=== PATIENT | female | born 1960 ===

== ENCOUNTER 2017-07-13 22:00 | Emergency (ER) | payer OTHER ==
[2017-07-13 22:14] VITALS: O2SAT 98
[2017-07-13] MEDS ORDERED: Sodium Chloride 0.9% 500 ML IV STA (23:48)
--- NOTE | 2017-07-13 23:48 | C.PDOC ---
History Of Present Illness 57yo female, presents to ED with complaints of cough and associated upper back pain for the past week. She states the pain is worsened with cough and deep inspiration. She denies any associated fever, chills, chest pain, nausea, vomiting or diarrhea. She offers no other medical complaints. PMD: Denis Esteban HPI: Influenza Time Seen by Provider: 07/13/17 22:24 Chief Complaint: Cough, Cold, Congestion Chief Complaint (Provider): Cough, back pain History Per: Patient Exam Limitations: no limitations Have you had recent travel within the past 21 days to any of the following countries: [place], [place], [place] or [place]?: No Onset/Duration Of Symptoms: Days Symptoms include: denies: fever, chest pain Risk factors for flu complications: No: adult > 65 years Past Medical History Reviewed: Historical Data, Nursing Documentation, Vital Signs Vital Signs: Last Vital Signs Temp 98.2 F 07/13/17 22:10 Pulse 92 H 07/13/17 22:10 Resp 18 07/13/17 22:10 BP 149/92 H 07/13/17 22:10 Pulse Ox 98 07/13/17 22:10 - Medical History PMH: No Chronic Diseases Surgical History: No Surg Hx Family History: States: No Known Family Hx - Social History Hx Alcohol Use: No Hx Substance Use: No Review Of Systems Except As Marked, All Systems Reviewed And Found Negative. Constitutional: Negative for: Fever, Chills Cardiovascular: Negative for: Chest Pain Respiratory: Positive for: Cough. Negative for: Shortness of Breath Gastrointestinal: Negative for: Nausea, Vomiting, Diarrhea Physical Exam - Physical Exam Appears: Non-toxic, Other (uncomfortable) Skin: Normal Color, Warm, Dry Head: Atraumatic, Normacephalic Eye(s): bilateral: Normal Inspection Ear(s): Bilateral: Normal Nose: Normal Oral Mucosa: Moist Throat: Normal, No Erythema, No Exudate Neck: Normal ROM, Supple Chest: Symmetrical Cardiovascular: Rhythm Regular Respiratory: Normal Breath Sounds, No Wheezing Back: Other (point tenderness to left upper back) Extremity: Normal ROM Neurological/Psych: Oriented x3 - Laboratory Results Result Diagrams: 07/14/17 00:05 07/14/17 00:05 - ECG ECG: Positive for: Interpreted By Me, Viewed By Me ECG Rhythm: Positive for: Sinus Rhythm Rate: 82 O2 Sat by Pulse Oximetry: 98 (RA) Pulse Ox Interpretation: Normal - Radiology X-Ray: Interpreted by Me, Viewed By Me X-Ray Interpretation: No Acute Disease - Progress ED Course And Treament: CXR and labs ordered. Patient given IV fluids and Toradol 30mg IM 0123 Labs reviewed and shows no clinically significant abnormalities. DDimer level below 200. Patient informed of CXR and labs findings, and is stable for discharge home. Patient given first dose of Zithromax in ER and instructed to take medication as prescribed. Instructed to follow up with PMD in 2-3 days. Disposition - Disposition Referrals: Denis Esteban MD [Medical Doctor] - Disposition: HOME/ ROUTINE Disposition Time: 23:43 Condition: STABLE Additional Instructions: Follow up with your PMD within 1-2 days. Return to ED if feel worse. Prescriptions: Fexofenadine HCl [SobiaNf] 180 mg PO DAILY #20 tab Albuterol Sulfate [Proair Hfa] 1 puff IH Q6 PRN #1 inh PRN Reason: Cough Benzonatate [Tessalon Perles] 2 tab PO TID #60 sgl Azithromycin [Zithromax] 250 mg PO DAILY #4 tab Instructions: Acute Bronchitis Forms: [employer] (Iranian) - Clinical Impression Clinical Impression: Bronchitis - PA / POTTERY DECORATOR / Resident Statement MD/DO has reviewed & agrees with the documentation as recorded. - Scribe Statement The provider has reviewed the documentation as recorded by the Scribe (Evangelina Rivera) Provider Attestation: All medical record entries made by the Scribe were at my direction and personally dictated by me. I have reviewed the chart and agree that the record accurately reflects my personal performance of the history, physical exam, medical decision making, and the department course for this patient. I have also personally directed, reviewed, and agree with the discharge instructions and disposition.
[2017-07-14 00:12] LABS: BASO # 0.1 K/uL (0.0-0.2); BASO % 0.7 % (0.0-2.0); EOS # 0.1 K/uL (0.0-0.7); EOS % 0.8 % (0.0-4.0); HEMOGLOBIN 12.4 g/dL (11.0-16.0); LYMPH # 4.1 K/uL (1.0-4.3); LYMPH % 42.4 % (20.0-40.0); MEAN CELL VOLUME 89.2 fL (81.0-99.0); MEAN CORPUSCULAR HEMOGLOBIN 31.2 pg (27.0-31.0); MEAN CORPUSCULAR HGB CONC 34.9 g/dL (33.0-37.0); MEAN PLATELET VOLUME 8.5 fL (7.2-11.7); MONO # 0.8 K/uL (0.0-0.8); MONO % 8.5 % (0.0-10.0); NEUT # 4.6 K/uL (1.8-7.0); NEUT % 47.6 % (50.0-75.0); RBC 3.99 Mil/uL (3.80-5.20); RED CELL DISTRIBUTION WIDTH 11.9 % (11.5-14.5); WHITE BLOOD COUNT 9.7 K/uL (4.8-10.8)
[2017-07-14 00:26] LABS: ALB/GLOB RATIO 0.9 (1.0-2.1); ALBUMIN 4.1 g/dL (3.5-5.0); ALT/SGPT 25 U/L (9-52); AST/SGOT 28 U/L (14-36); BLOOD UREA NITROGEN 15 mg/dL (7-17); CALCIUM 9.7 mg/dl (8.6-10.4); GFR AFRICAN-AMERICAN > 60; GFR NON-AFRICAN AMERICAN > 60
[2017-07-14 00:30] LABS: INR 1.3; PARTIAL THROMBOPLASTIN TIME 33 SECONDS (21-34); PROTHROMBIN TIME 14.2 SECONDS (9.7-12.2)
[2017-07-14 00:38] LABS: CK-MB < 0.22 ng/mL (0.0-3.38)
[2017-07-14 01:17] LABS: D DIMER < 200 ng/mlDDU (0-243)
[2017-07-14 01:21] VITALS: BP 160/84; RESP 16; TEMP 98.1
[2017-07-14 02:45] VITALS: PULSE 82
--- NOTE | 2017-07-14 11:54 | RAD ---
HISTORY: cough COMPARISON: Chest radiographs 426 13. TECHNIQUE: Chest PA and lateral FINDINGS: LUNGS: No active pulmonary disease. PLEURA: No significant pleural effusion identified. No pneumothorax apparent. CARDIOVASCULAR: Normal. OSSEOUS STRUCTURES: No significant abnormalities. VISUALIZED UPPER ABDOMEN: Normal. OTHER FINDINGS: None. IMPRESSION: No interval acute cardiopulmonary disease appreciated.
== END 2017-07-14 01:28 | disposition home or self-care (01) ==
LOC: C.ER 22:00
DX: J40 Bronchitis, not specified as acute or chronic (principal)
CPT/HCPCS: 71046; 80053; 82550; 82553; 84484; 85025; 85378; 85610; 85730; 96361; 96374; 99284; J1885; J7040

== ENCOUNTER 2017-12-29 21:16 | Emergency (ER) | payer SELFPAY ==
[2017-12-29 21:27] VITALS: TEMP 98
[2017-12-29 21:39] VITALS: PULSE 78; RESP 18
--- NOTE | 2017-12-29 21:40 | C.PDOC ---
History Of Present Illness 57 y/o female pt presents to the ER because she was concerned about her blood pressure. Pt checked her blood pressure at her friends house and took her friends medication: Losartan. Pt now has a headache. Pt denies neck pain, stiffness, visual changes, nausea, vomiting, diarrhea, SOB, chest pain and weakness. Pt does not have a doctor. Time Seen by Provider: 12/29/17 21:31 Chief Complaint (Nursing): High Blood Pressure History Per: Patient History/Exam Limitations: no limitations Onset/Duration Of Symptoms: Hrs Current Symptoms Are (Timing): Still Present Associated Symptoms: Headache Past Medical History Reviewed: Historical Data, Nursing Documentation, Vital Signs Vital Signs: Last Vital Signs Temp 98 F 12/29/17 21:24 Pulse 74 12/29/17 21:24 Resp 14 12/29/17 21:24 BP 171/91 H 12/29/17 21:24 Pulse Ox 97 12/29/17 21:24 - Medical History PMH: HTN Surgical History: Cholecystectomy Family History: States: No Known Family Hx - Social History Hx Alcohol Use: No Hx Substance Use: No - Immunization History Hx Tetanus Toxoid Vaccination: No Hx Influenza Vaccination: No Hx Pneumococcal Vaccination: No Review Of Systems Except As Marked, All Systems Reviewed And Found Negative. Eyes: Negative for: Vision Change Cardiovascular: Negative for: Chest Pain Respiratory: Negative for: Shortness of Breath Gastrointestinal: Negative for: Nausea, Vomiting, Diarrhea Musculoskeletal: Negative for: Neck Pain, Other (neck stiffness ) Neurological: Positive for: Headache. Negative for: Weakness Physical Exam - Physical Exam Appears: Non-toxic, No Acute Distress Skin: Normal Color, Warm, Dry Head: Atraumatic, Normacephalic Eye(s): bilateral: Normal Inspection, PERRL, EOMI Throat: Normal Neck: Normal ROM, Supple Chest: Symmetrical, No Deformity Cardiovascular: Rhythm Regular Respiratory: Normal Breath Sounds Gastrointestinal/Abdominal: Soft, No Tenderness Back: No CVA Tenderness Extremity: Normal ROM (x4) Neurological/Psych: Oriented x3, Normal Speech, Normal Cognition ED Course And Treatment O2 Sat by Pulse Oximetry: 97 (RA) Pulse Ox Interpretation: Normal Medical Decision Making Medical Decision Making: Plan -- tylenol and reassess. Pt reports her headache has improved. Pt blood pressure is now a 163/79 22:17 Pt reassessed, h/a now gone, will d/c home w/Rx for HCTZ, to f/u w/[facility] and [facility] for new or concerning symptoms. Pt was provided w/verbal and written d/c instructions in Croatian, was agreeable w/POC and verbalized understanding. Disposition Counseled Patient/Family Regarding: Studies Performed, Diagnosis, Need For Followup - Disposition Referrals: [facility] [Outside] [facility] [Outside] Disposition: HOME/ ROUTINE Disposition Time: 22:25 Condition: IMPROVED Additional Instructions: TESSY BAIRES, thank you for letting us take care of you today. Your provider was Miguelina Padron MD and you were treated for HBP. The emergency medical care you received today was directed at your acute symptoms. If you were prescribed any medication, please fill it and take as directed. It may take several days for your symptoms to resolve. Return to the Emergency Department if your symptoms worsen, do not improve, or if you have any other problems. Please contact your doctor or call one of the physicians/clinics you have been referred to that are listed on the Patient Visit Information form that is included in your discharge packet. Bring any paperwork you were given at discharge with you along with any medications you are taking to your follow up visit. Our treatment cannot replace ongoing medical care by a primary care provider outside of the emergency department. Thank you for allowing the [facility] team to be part of your care today. Prescriptions: Hydrochlorothiazide [Microzide] 12.5 mg PO DAILY #30 cap Instructions: High Blood Pressure (DC) Forms: [employer] (Bulgarian), General Discharge Instructions Print Language: GABONESE - POA Present On Arrival: None - Clinical Impression Clinical Impression: Hypertension - Scribe Statement The provider has reviewed the documentation as recorded by the Porfirio Adler Do Provider Attestation: All medical record entries made by the Scribe were at my direction and personally dictated by me. I have reviewed the chart and agree that the record accurately reflects my personal performance of the history, physical exam, medical decision making, and the department course for this patient. I have also personally directed, reviewed, and agree with the discharge instructions and disposition.
[2017-12-29 22:31] VITALS: BP 165/79; O2SAT 98
== END 2017-12-29 22:31 | disposition home or self-care (01) ==
LOC: C.ER 21:16
DX: I10 Essential (primary) hypertension (principal)